=== PATIENT | female | born 1985 | race Caucasian/White ===

== ENCOUNTER → 2019-07-08 16:30 | Observation (INO) ==
[2019-07-08 12:29] LABS: Bilirubin,Urine Negative (Negative); Blood,Urine Negative (Negative); Color,Urine Yellow (Yellow); Glucose,Urine (UA) Normal (Normal); Ketones,Urine Negative (Negative); Leukocyte Esterase,Urine Small (Negative); Nitrite,Urine Negative (Negative); PH,Urine 8.5 pH Units (5.0-8.0); Protein,Urine Negative (Neg-Trace); Specific Gravity,Urine 1.023 (1.010-1.025); Urobilinogen,Urine Normal (Normal)
[2019-07-08 12:33] LABS: Bacteria,Urine Few per hpf (None-Few); Hyaline Casts,Urine None Seen per lpf (None-Few); RBC,Urine 0-3 per hpf (0-3)
[2019-07-08 12:34] LABS: Clarity,Urine Cloudy (Clear)
[2019-07-08 12:48] LABS: Squamous Epithelial Cell,Urine Few per lpf (None-Few)
[~2019-07-08 16:30] MED LIST: Ondansetron 4 MG/2 ML VIAL IVP ONE; Ringers Solution, Lactated 1,000 ML IVC ONE; Ringers Solution, Lactated 1,000 ML IVC SCH
== END | disposition home or self-care (01) ==
LOC: 1NENULAB
PROVIDERS: ADMIT Advanced Practice Midwife; ATTEND Advanced Practice Midwife

== ENCOUNTER 2019-07-25 04:00 | Inpatient (IN) ==
[2019-07-25] MEDS ORDERED: *HR* LORazepam 2 MG/ML VIAL IVP ONE (07:41)
[2019-07-25] MEDS ORDERED: Metoclopramide 10 MG/2 ML VIAL IVP PRN (09:53)
[2019-07-25] MEDS ORDERED: miSOPROStoL 25 MCG TABLET VG PRN (09:53)
[2019-07-25] MEDS ORDERED: Naloxone 0.4 MG/ML INJ IVP PRN (09:53)
[2019-07-25] MEDS ORDERED: *HR* FentaNYL (PF) 100 MCG/2 ML VIAL IVP PRN (09:53)
[2019-07-25] MEDS ORDERED: Ondansetron 4 MG/2 ML VIAL IVP PRN (09:53)
[2019-07-25] MEDS ORDERED: Lidocaine 1% 20 ML MDV INFILT PRN (09:53)
[2019-07-25] MEDS ORDERED: Azithromycin 500 MG in 0.9 % Sodium Chloride 250 ML IVPB ONE (09:53)
[2019-07-25] MEDS ORDERED: Famotidine 20 MG/2 ML VIAL IVP PRN (09:53)
[2019-07-25] MEDS ORDERED: Ringers Solution, Lactated 1,000 ML IVC SCH (10:00)
[2019-07-25] MEDS ORDERED: Oxytocin 20 units/ LR 1000 mL 20 UNIT/1,000 ML BAG IVC SCH ×2 (10:00→20:07)
[2019-07-25] MEDS ORDERED: Penicillin G Potassium 5,000,000 UNIT in 0.9 % Sodium Chloride Mini Bag 100 ML IVPB ONE (10:30)
[2019-07-25 10:46] LABS: Basophils % 0.3 %; Eosinophils # 0.1 K/mcL (0.0-0.6); Hemoglobin 10.5 g/dL (11.5-15.4); Lymphocytes # 1.4 K/mcL (0.6-4.6); Lymphocytes % 19.4 %; Mean Corpuscular HGB Conc 31.8 g/dL (31.6-35.5); Mean Corpuscular Hemoglobin 27.3 pg (28.0-33.3); Mean Corpuscular Volume 85.9 fL (83.0-100.0); Mean Platelet Volume 11.3 fL (9.4-12.4); Monocytes # 0.5 K/mcL (0.0-1.3); Monocytes % 7.4 %; Platelet Count 205 K/mcL (140-400); Red Blood Count 3.84 M/mcL (3.82-4.97); Red Cell Distribution Width 14.2 % (11.5-14.5); Segmented Neutrophils % 70.9 %; White Blood Count 7.1 K/mcL (4.3-11.1)
[2019-07-25 10:56] LABS: Amphetamine Screen,Urine Negative ng/mL (Cutoff=1000); Barbiturate Screen,Urine Positive ng/mL (Cutoff=200); Benzodiazepines Screen,Urine Negative ng/mL (Cutoff=200); Cannabinoid Screen,Urine Negative ng/mL (Cutoff = 50); Cocaine Screen,Urine Negative ng/mL (Cutoff= 300); Opiate Screen,Urine Negative ng/mL (Cutoff=300); Phencyclidine Screen,Urine Negative ng/mL (Cutoff=25)
[2019-07-25] MEDS ORDERED: Penicillin G Potassium 2,500,000 UNIT in 0.9 % Sodium Chloride 100 ML IVPB SCH (14:30)
[2019-07-25] MEDS ORDERED: Sennosides 8.6 MG TABLET PO PRN (20:07)
[2019-07-25] MEDS ORDERED: Acetaminophen 325 MG TABLET PO PRN (20:07)
[2019-07-25] MEDS ORDERED: Benzocaine/Menthol 56 GM AEROSOL SPRAY TP PRN (20:07)
[2019-07-25] MEDS ORDERED: Lanolin 7 G OINT...G. TP PRN (20:07)
[2019-07-25] MEDS: Ibuprofen 600 MG TABLET PO PRN (21:12)
[2019-07-26] MEDS: Ibuprofen 600 MG TABLET PO PRN (08:40)
[2019-07-26] MEDS ORDERED: Prenatal Vit/FA 1 EACH TABLET PO SCH (09:00)
[2019-07-26] MEDS ORDERED: Saline Nasal Spray 44 ML BOTTLE NS PRN ×2 (10:59)
[2019-07-26 11:08] VITALS: BP 143/83
== END 2019-07-26 17:52 | disposition home or self-care (01) | DRG 806 ==
LOC: 1NENULAB 09:20 → 1NENUOBS 20:07
PROVIDERS: ADMIT Student in an Organized Health Care Education/Training Program; ATTEND Student in an Organized Health Care Education/Training Program